=== PATIENT | female | born 1960 | race Caucasian/White ===

== ENCOUNTER 2023-04-10 08:22 | Day surgery (SDC) | payer BC, SELFPAY ==
[2023-04-07 14:10] LABS: Albumin 3.6 g/dL (3.4-5.0); Bilirubin Total 0.4 mg/dL (0.2-1.0); Potassium 3.7 mEq/L (3.5-5.1); Protein, Total 7.8 g/dL (6.4-8.2)
--- NOTE | 2023-04-08 12:52 | EKG ---
Test Date: 2023-04-07 Test Time: 14:39:23 [address]: MARTHA MEASUREMENT RESULTS: Intervals: Rate: 60 DC: 172 QRSD: 96 QT: 392 QTc: 392 Stephens: P: 80 DC: 172 QRS: 44 T: 80 INTERPRETIVE STATEMENTS: Normal sinus rhythm Normal ECG No previous ECG available for comparison Electronically Signed On 04-08-23 12:49:40 PERSONAL CARE SERVICE PROVIDER by Carmelo Olivares
[2023-04-10] MEDS ORDERED: NA CHLORIDE 0.9% 1,000 ML ONE ×2 (08:40→15:18)
[2023-04-10] MEDS ORDERED: propofoL 200 MG/20 ML VIAL IV ONE ×2 (10:03→11:50)
[2023-04-10] MEDS ORDERED: MIDAZOLAM HCL 2 MG/2 ML INJ ONE (10:03)
[2023-04-10] MEDS ORDERED: FENTANYL CITR 100 MCG/2 ML ONE (10:03)
[2023-04-10] MEDS ORDERED: ONDANSETRON 4 MG/2 ML VIAL ONE (10:05)
[2023-04-10] MEDS ORDERED: dexAMETHasone 10 MG/ML VIAL ONE (10:05)
[2023-04-10] MEDS: LIDOCAINE HCL/EPINEPHRINE 20 ML MDV ONE ×2 (11:06→11:45)
[2023-04-10] MEDS ORDERED: HYDROMORPHONE HCL 2 MG/ML inj ONE (11:29)
[2023-04-10] MEDS ORDERED: EPHEDRINE SULF 50 MG/ML VIAL ONE (11:54)
--- NOTE | 2023-04-10 12:51 | P.OP ---
Nurses' Registry Director: ANSHU MATA Preoperative diagnosis: benign neoplasm parathyroid, hypercalcemia, hyperparathyroidism, osteoporos Postoperative diagnosis: same Primary procedure: left inferior parathyroidectomy Anesthesia: general Estimated blood loss: 5ml Specimen: left parathyroid Findings: pre-op PTH 120 Operative Technique: The patient was brought to the operating room and placed under general anesthesia via oral endotracheal tube with vocal cord neuromonitoring. A shoulder roll was placed and the head was extended. The planned incision site was injected with 2 mL of 1% lidocaine with epinephrine. The neck was prepped and draped in standard fashion for thyroid surgery. The patient's neck was palpated. Preoperative imaging suggested a left inferior parathyroid located at the inferior pole of the left lobe. A 2.5 cm incision was made through the skin and subcutaneous tissues. The soft tissues were carefully dissected. The platysma was identified and retracted laterally. Adipose tissue was carefully dissected and the strap muscles were identified in the midline. The midline raphae was divided and the left strap muscles were retracted laterally. With gentle dissection the inferior pole of the thyroid was identified. Fairly superficial distally and immediately inferior to the inferior pole the parathyroid tissue was identified visually. The edge of the gland was grasped and careful dissection using an Romero and LigaSure was used to free the gland from surrounding soft tissues. In vitro the gland appeared about 1 x 1.5 x 2 cm. As dissection continued and the specimen was removed, the surgical bed was carefully inspected. Time was marked with plan for intraoperative PTH measurement 20 minutes following removal. There is no significant bleeding. The area was inspected. The recurrent laryngeal nerve was not immediately visualized and further dissection for identification alone was not indicated. The incision was closed in a layered fashion using 4-0 Vicryl deep sutures to approximate the fascia and 5-0 Monocryl subcuticular sutures. 20 minutes after removal, intraoperative blood was drawn and sent to the lab for stat PTH measurement. The post-excision PTH returned at 36 and the procedure was concluded. The skinw as cleaned and dried. Mastisol and steroistrips were applied to the incision and the patient was returned to care of anesthesia for awakening, extubation and transportation to the recovery room in stable condition. Complications: None Implants: none Fluids & blood products: crystalloid, see anesthesia record Transferred to: Recovery Room Condition: Good
[2023-04-10 17:37] VITALS: BP 102/48; TEMP 98.4; O2SAT 97
== END 2023-04-10 17:18 | disposition home or self-care (01) ==
LOC: OR 08:22
PROVIDERS: ATTEND Otolaryngology
PROC: 0GTP0ZZ Resection of Left Inferior Parathyroid Gland, Open Approach (ICD-10-PCS; principal; 2023-04-10 10:15)
DX: D35.1 Benign neoplasm of parathyroid gland (principal); E21.3 Hyperparathyroidism, unspecified
CPT/HCPCS: 93005; 36415 ×2; 82947 ×2; 88305; 83970 ×2; 80053; 60500; J2704 ×2; J2250; J1170; J3010; J1100; J2405; J7030 ×2; 88304